=== PATIENT | male | born 1970 | race African-American/Black ===

== ENCOUNTER 2017-03-22 15:41 | Emergency (ER) | payer BC ==
--- NOTE | 2017-03-22 16:46 | UC ---
Abdominal Pain Male HPI - HPI Summary HPI Summary: 46 year old male presents with complains of llq pain. - History of Current Complaint Stated Complaint: LOWER LEFT ABDOMINAL SHARP PAINS Time Seen by Provider: 03/22/17 16:46 Hx Obtained From: Patient Onset/Duration: Sudden Onset Severity Initially: Moderate Severity Currently: Moderate Pain Scale Used: 0-10 Numeric - 8 Location: Discrete At: LLQ Radiates: No Character: Aching, Sharp - Allergies/Home Medications Allergies/Adverse Reactions: Allergies Allergy/AdvReac Type Severity Reaction Status Date / Time No Known Allergies Allergy Verified 03/22/17 16:52 PMH/Surg Hx/FS Hx/Imm Hx Previously Healthy: Yes Review of Systems Constitutional: Negative Skin: Negative Eyes: Negative ENT: Negative Respiratory: Negative Cardiovascular: Negative Gastrointestinal: Abdominal Pain, Other - llq pain Genitourinary: Negative Motor: Negative Neurovascular: Negative Musculoskeletal: Negative Neurological: Negative Psychological: Negative All Other Systems Reviewed And Are Negative: Yes Physical Exam Triage Information Reviewed: Yes Vital Signs Reviewed: Yes Eye Exam: Normal ENT Exam: Normal Dental Exam: Normal Neck exam: Normal Neck: Positive: 1 Respiratory Exam: Normal Cardiovascular Exam: Normal Abdomen Description: Positive: Other: - llq pain Musculoskeletal Exam: Normal Neurological Exam: Normal Psychological Exam: Normal Skin Exam: Normal Abd Pain Male Course/Dx - Differential Dx/Clinical Impression Provider Diagnoses: llq pain Discharge - Discharge Plan Condition: Stable Disposition: HOME Prescriptions: Meloxicam(NF) [Mobic(NF)] 7.5 mg PO BID #30 tab Methocarbamol TAB* [Robaxin 500 MG TAB*] 500 mg PO TID PRN #30 tab PRN Reason: Spasms Patient Education Materials: Acute Abdominal Pain (ED) Referrals: No Primary Care Phys,NOPCP [Primary Care Provider] -
[2017-03-22 16:52] VITALS: BP 126/83
== END 2017-03-22 17:01 | disposition home or self-care (01) ==
LOC: UCCORT 15:41
DX: R10.32 Left lower quadrant pain (principal)
CPT/HCPCS: 99202; G0463